=== PATIENT | female | born 1965 ===

== ENCOUNTER 2017-05-24 22:16 | Inpatient (IN) ==
--- NOTE | 2017-05-24 22:39 | Emergency Department Note ---
Arrival - Arrival Chief Complaint: GI Bleed/Rectal Stated Complaint: Rectal bleeding ED Nursing Triage Note: C/C dark bloody stools, nausea. Had similar episode 2 weeks ago and was supposed to f/u with GI. Pt states she went to see [facility] and did not have referral so they would not see her. Pt has another appt in a week. Pt was given Zofran 4mg IV at [facility]. Dialysis M/W/F. Hemocult + Mode of Arrival: Stretcher Limitations: No Limitations Source: Patient Time Seen by Provider: 05/24/17 22:35 - History of Present Illness HPI Narrative: This 52-year-old female [place] presents on referral for problems of persistent lower GI bleed. The patient has had 2 weeks of problems with dark stools that have been Hemoccult. The patient was supposed to see Dr. Mcneal in the office but the office received no referral and they would not see her. She was given another appointment which is yet to come up. Patient is a chronic dialysis patient dialyzing Wednesdays and Fridays. Patient denies any complaints of heartburn, belching, prior peptic ulcer disease, diverticulitis, or inflammatory bowel disease. At no time as she had any chest pain or shortness of breath associated with this. Currently she is stable without any significant complaint having received some antiemetics at [place]. Onset (ago): hour(s) (Patient presents 6 hours after passage of melanotic stool) Allergies/Adverse Reactions: Allergies Allergy/AdvReac Type Severity Reaction Status Date / Time No Known Allergies Allergy Verified 05/24/17 22:30 Home Medications: Home Medications Medication Instructions Recorded Confirmed Type Albuterol Sulfate [Ventolin HFA] 1 puff INH Q4H PRN 06/24/15 04/30/16 History Calcium Acetate [Phoslyra] 1,334 mg PO TID 06/24/15 04/30/16 History Metoprolol Tartrate 100 mg PO DAILY 06/24/15 04/30/16 History HYDROcodone/ACETAMIN 10-325 [[place] 1 tablet PO Q6H PRN #14 tablet 04/30/16 Rx 10-325] Insulin Detemir [Levemir FlexPen] 30 unit SUBCUT BEDTIME 04/30/16 04/30/16 History NIFEdipine [Nifedipine ER] 60 mg PO DAILY 04/30/16 04/30/16 History levoFLOXacin [Levofloxacin Tab] 250 mg PO DAILY 04/30/16 04/30/16 History traMADol TAB [Ultram] 50 mg PO Q8H PRN 04/30/16 04/30/16 History Review of System - Review of System 12 point system: reviewed and no additional remarkable complaints except as stated - Review of System Constitutional: Present: as per HPI Respiratory: Present: as per HPI Cardiovascular: Present: as per HPI Gastrointestinal: Present: as per HPI Medical,Surgical,& Family Hx - Medical History Cardio: History of: CHF, Hypertension Endocrine: History of: Diabetes Mellitus (IDDM) Renal: History of: Dialysis (MWF), Renal Failure Gastrointestinal: History of: Gastrointestinal Bleed Musculoskeletal: History of: Amputation (ALL TOES AMPUTATED OFF LEFT FOOT) - Surgical History Abdominal Surgeries: Surgical HX of: Abdominal Surgery, Appendectomy, Cholecystectomy - Family History Family History: Reports;: Family Diabetes (father, sister) - Social History Smoking Status: Former smoker Frequency of Alcohol Use: None Type of Drug Use: None Exam Physical Examination: GENERAL: Obese [place] female in no acute distress. HEENT: Normocephalic. No trauma. Moist mucous membranes. EOMI. PERRLA. ENT NML NECK: Supple. No adenopathy. CARDIAC: Regular. No murmurs. Heart rate 60 CHEST: Clear to auscultation. No respiratory distress. O2 sat 96% ABDOMEN: Soft. Nontender. Active bowel sounds. EXTREMITIES: No trauma. Normal ROM. No pedal edema. 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 No rash. NEURO: Alert. Neuro intact no focal deficits. Vital Signs: Vital Signs Temperature 97.1 F L 05/24/17 22:18 Pulse Rate 60 05/24/17 22:18 Respiratory Rate 18 05/24/17 22:18 Blood Pressure 191/75 05/24/17 22:18 O2 Sat by Pulse Oximetry 96 05/24/17 22:18 Course - Reevaluation(s) Reevaluation #1: Patient transferred for the purpose of admission and evaluation per GI. - Consultations Consultation #1: Discussed with the hospitalist who will admit for further evaluation treatment. Results - Labs Labs: Results per [place]: Hemoccult positive stool, white blood cell count 3800, hematocrit 30.8, sodium 140, potassium 4.8, BUN 41, creatinine 6.8, glucose 155 , PT 14.6 seconds, INR 1.11 Disposition Clinical Impression: Recurrent GI bleed, Dialysis dependent renal Case discussed with: patient Disposition: Still a Patient Condition: Guarded Time of Disposition: 22:50
[2017-05-24] MEDS ORDERED: METOCLOPRAMIDE 10 MG/2 ML VIAL IV STA (22:40)
[2017-05-24] MEDS ORDERED: PANTOPRAZOLE 40 MG VIAL IV STA (22:40)
[2017-05-24] MEDS ORDERED: PANTOPRAZOLE 40 MG VIAL IV ONE (22:55)
[2017-05-24] MEDS ORDERED: METOCLOPRAMIDE 10 MG/2 ML VIAL ONE (22:56)
[2017-05-24 23:25] LABS: Basophils % 0.5 % (0.0-0.8); Eosinophils # 0.3 10*3/uL (0.0-0.87); Hematocrit 28.2 VOL% (35.7-47.0); Hemoglobin 9.5 GM/DL (12.0-16.0); Immature Granulocytes % 0.3 %; Immature Granulocytes Absolute 0.01 #; Lymphocytes # 1.1 10*3/uL (1.4-4.0); Lymphocytes % 28.1 % (21.3-54.2); Mean Corpuscular HGB Conc 33.7 GM/DL (32-36); Mean Corpuscular Hemoglobin 32 PG (27-34); Mean Corpuscular Volume 94.6 FL (87-102); Mean Platelet Volume 10.6 FL (9.6-12.0); Monocytes # 0.4 10*3/uL (0.11-0.8); Monocytes % 9.6 % (1.7-12.7); Neutrophils # 2.1 10*3/uL (1.4-7.4); Neutrophils % 54.5 % (38.7-73.9); Platelet Count 73 T/CUMM (130-400); Red Blood Count 2.98 MC/CUMM (3.8-5.5); Red Cell Distribution Width 14.6 % (9.3-17.3); White Blood Count 3.9 T/CUMM (4-12)
[2017-05-25 00:44] LABS: Eosinophils 6 % (0-10); Lymphocytes 25 % (20-55); Platelet Estimate Decreased; Segmented Neutrophils 61 % (50-85); Total Cells Counted 100
[2017-05-25] MEDS ORDERED: hydrALAZINE 20 MG/1 ML VIAL ONE (01:44)
[2017-05-25] MEDS ORDERED: hydrALAZINE 20 MG/1 ML VIAL IV ONE (01:44)
[2017-05-25] MEDS ORDERED: traZODone 50 MG TABLET PO PRN (01:55)
[2017-05-25] MEDS ORDERED: ACETAMINOPHEN 325 MG TABLET PO PRN (01:55)
[2017-05-25] MEDS ORDERED: PROMETHAZINE 25 MG/1 ML VIAL IM PRN (01:55)
[2017-05-25] MEDS ORDERED: MORPHINE 2 MG/1 ML SYRINGE IV PRN (01:55)
[2017-05-25] MEDS ORDERED: PROMETHAZINE 25 MG TABLET PO PRN (01:55)
[2017-05-25] MEDS ORDERED: ONDANSETRON 4 MG/2 ML VIAL IV PRN (01:55)
[2017-05-25] MEDS ORDERED: diphenhydrAMINE CAP 25 MG CAPSULE PO PRN (01:55)
[2017-05-25] MEDS ORDERED: hydrALAZINE 20 MG/1 ML VIAL IV PRN (02:04)
[2017-05-25] MEDS ORDERED: DEXTROSE 50% 25 GM/50 ML SYRINGE IV PRN (02:12)
[2017-05-25] MEDS ORDERED: GLUCAGON 1 MG VIAL IM PRN (02:12)
--- NOTE | 2017-05-25 02:15 | Hospitalist History & Physical ---
Assessment and Plan (1) Blood loss anemia Status: Acute Assessment and plan: - due to GI Bleed - serial hemoglobin - will transfuse if needed - will monitor Current Visit: Yes (2) GI bleed Status: Acute Assessment and plan: - Protonix infusion - Carafate - GI Consult - serial CBC; will transfuse if need - will monitor Current Visit: Yes (3) Diabetes mellitus Status: Acute Assessment and plan: - Holding home insulin - SSI and accuchecks - will monitor Current Visit: No (4) End stage renal disease Status: Acute Assessment and plan: ESRD - on Dialysis - Consult nephrology - will monitor Current Visit: No History of Present Illness Chief complaint: Dark stools History of present illness: Ms. Griffin is a 52 year old female with a history of DM, HTN, and ESRD on dialysis (M-W-F) that presented from [facility] for GI bleed. Patient reports having maroon stools that started today. Patient reports that she has had 2 stools. Patient reports chronic nausea and vomiting since starting dialysis. Patient reports weakness and mild right lower quadrant pain. Patient reports that she had dark maroon stools about 1 month ago and was supposed to see a GI doctor but it was never set up. Patient has never had any type of endoscopic evaluation. Patient denies taking any blood thinners or NSAIDs. ER labs reviewed. Patient will be admitted to the hospitalist service for a GI bleed. Home Medications Medication Instructions Recorded Confirmed Type Insulin Detemir [Levemir FlexPen] 30 unit SUBCUT BEDTIME 04/30/16 05/25/17 History NIFEdipine [Nifedipine ER] 90 mg PO DAILY 04/30/16 05/25/17 History Metoprolol Tartrate 50 mg PO DAILY 05/25/17 05/25/17 History Allergies Allergy/AdvReac Type Severity Reaction Status Date / Time No Known Allergies Allergy Verified 05/24/17 22:30 Medical,Surgical,& Family Hx - Medical History Cardio: History of: CHF, Hypertension Endocrine: History of: Diabetes Mellitus (IDDM) Renal: History of: Dialysis (MWF), Renal Failure Gastrointestinal: History of: Gastrointestinal Bleed Musculoskeletal: History of: Amputation (ALL TOES AMPUTATED OFF LEFT FOOT) - Surgical History Abdominal Surgeries: Surgical HX of: Abdominal Surgery, Appendectomy, Cholecystectomy Orthopedic Surgeries: Surgical HX of;: Orthopedic Surgery (transmetatarsal amputation of the left foot) - Family History Family History: Reports;: Family Diabetes (father, sister) - Social History Smoking Status: Former smoker Frequency of Alcohol Use: None Type of Drug Use: None Review of systems: 12 point review of systems is negative unless stated in the HPI Exam - Constitutional Vitals: Period Temp Pulse Resp BP Sys/Coello Pulse Ox Last 24 Hr 97.1 F-97.1 F 60-60 18-18 191-191/75-75 96 General appearance: no acute distress, over weight - Head Head exam: Present: normal inspection - Eye Eye exam: Present: EOMI - Neck Neck exam: Present: normal inspection - Respiratory Respiratory exam: Present: clear to auscultation bilaterally - Cardiovascular Cardiovascular exam: Present: regular rate and rhythm - GI/Abdominal GI/Abdominal exam: Present: normal bowel sounds, tenderness (rightt lower quadrant), soft. Absent: distended, rebound - Extremities Exam Extremities exam: Present: edema, other (peripheral pulses intact). Absent: normal inspection - Neurological Exam Neurological exam: Present: alert, oriented X3 - Psychiatric Psychiatric exam: Present: normal affect, normal mood - Skin Skin exam: Present: normal color, warm, dry Results - Labs CBC & BMP: 05/24/17 23:06 Quality Measures - VTE Contraindication to Pharmacological VTE Prophylaxis: Active Bleeding
[2017-05-25] MEDS ORDERED: PANTOPRAZOLE INJ 200 MG in SODIUM CHLORIDE 0.9% 250 ML IV SCH (03:00)
[2017-05-25 05:57] LABS: Basophils % 0.9 % (0.0-0.8); Eosinophils # 0.3 10*3/uL (0.0-0.87); Eosinophils % 7.9 % (0.00-10.9); Hematocrit 28.3 VOL% (35.7-47.0); Hemoglobin 9.6 GM/DL (12.0-16.0); Immature Granulocytes % 0.3 %; Immature Granulocytes Absolute 0.01 #; Lymphocytes % 30.6 % (21.3-54.2); Mean Corpuscular HGB Conc 33.9 GM/DL (32-36); Mean Corpuscular Hemoglobin 32 PG (27-34); Mean Corpuscular Volume 94.3 FL (87-102); Mean Platelet Volume 11.1 FL (9.6-12.0); Monocytes # 0.3 10*3/uL (0.11-0.8); Monocytes % 8.5 % (1.7-12.7); Neutrophils # 1.8 10*3/uL (1.4-7.4); Neutrophils % 51.8 % (38.7-73.9); Red Cell Distribution Width 14.6 % (9.3-17.3); White Blood Count 3.4 T/CUMM (4-12)
[2017-05-25 06:03] LABS: Platelet Count 73 T/CUMM (130-400)
[2017-05-25 06:30] LABS: Albumin 3.2 G/DL (3.4-5.0); Bilirubin,Total 0.9 MG/DL (0.2-1.0); Calcium 8.6 MG/DL (8.5-10.1); Osmolality,Calculated 290.4 MOS/KG (273-304); Potassium 4.5 MMOL/L (3.5-5.1); Total Protein 7.4 G/DL (6.4-8.3)
[2017-05-25 06:32] LABS: Hypochromasia 1+; Microcytosis Slight; Platelet Estimate Decreased
[2017-05-25] MEDS: METOPROLOL TARTRATE 50 MG TABLET PO SCH (08:09)
[2017-05-25] MEDS: SUCRALFATE 1 GM/10 ML UDCUP PO SCH ×2 (08:09→12:04)
[2017-05-25] MEDS: INSULIN LISPRO 100 UNIT/ML SUBCUT SCH ×4 (08:09→20:39)
[2017-05-25] MEDS ORDERED: PNEUMOCOCCAL VACCINE (13 VALENT) 0.5 ML SYRINGE IM ONE (08:30)
[2017-05-25 10:24] LABS: Basophils % 0.7 % (0.0-0.8); Eosinophils # 0.3 10*3/uL (0.0-0.87); Eosinophils % 7.8 % (0.00-10.9); Hematocrit 28.9 VOL% (35.7-47.0); Hemoglobin 9.9 GM/DL (12.0-16.0); Immature Granulocytes % 0.2 %; Immature Granulocytes Absolute 0.01 #; Lymphocytes # 1.1 10*3/uL (1.4-4.0); Lymphocytes % 25.1 % (21.3-54.2); Mean Corpuscular HGB Conc 34.3 GM/DL (32-36); Mean Corpuscular Hemoglobin 33 PG (27-34); Mean Corpuscular Volume 95.4 FL (87-102); Mean Platelet Volume 10.5 FL (9.6-12.0); Monocytes # 0.4 10*3/uL (0.11-0.8); Monocytes % 8.5 % (1.7-12.7); Neutrophils # 2.4 10*3/uL (1.4-7.4); Neutrophils % 57.7 % (38.7-73.9); Platelet Count 81 T/CUMM (130-400); Red Blood Count 3.03 MC/CUMM (3.8-5.5); Red Cell Distribution Width 14.7 % (9.3-17.3); White Blood Count 4.2 T/CUMM (4-12)
[2017-05-25 10:46] LABS: Hypochromasia 1+
[2017-05-25 10:47] LABS: Microcytosis Slight; Ovalocytes Slight; Platelet Estimate Decreased
--- NOTE | 2017-05-25 12:03 | Dialysis Note ---
Dialysis Note - Dialysis Note Patient seen on hemodialysis, she is tolerating this well will continue his treatment unchanged.
--- NOTE | 2017-05-25 12:11 | Gastrointestinal Consult Note ---
Assessment and Plan (1) Gastrointestinal hemorrhage with melena Status: Acute Assessment and plan: The patient has some mild epigastric pain is thought that she may have peptic ulcer disease as the cause for her symptoms. We also wish to rule out esophagitis gastric cancer erosive gastritis duodenitis and AVMs. She really does not have much in the way of heartburn indigestion. There is no dysphagia. She does have some mild right lower quadrant pain of unclear etiology. This may be an association with adhesions from her previous appendix removal, cholecystectomy. We will plan on performing upper endoscopy tomorrow morning. Risks of the procedure include but are not limited to: Bleeding, infection, perforation, cardiac and pulmonary compromise. Agree with use of Protonix 40 mg twice daily either orally or IV. Current Visit: Yes (2) Blood loss anemia Status: Acute Assessment and plan: Again we will plan on observing patient's hematocrit and hold off on transfusion for the present time unless she drops below 24%. Transfusion parameters will not be written as she will likely need to this given to her on dialysis. Hematocrits twice daily are probably adequate. Further recommendations post upper endoscopy. Current Visit: Yes (3) Obesity Status: Acute Assessment and plan: Mild obesity noted. Current Visit: No Qualifiers: Obesity classification: adult class 2 (BMI 35 ? 39.9) History of Present Illness Chief complaint: Melena, hematocrit dropped from 34-28%, epigastric/RLQ tenderness History of present illness: Ms. Griffin is a 52 year old female who was referred from the [facility] for upper GI bleeding. She had previously been seen by Dr. Viveros back in June 2008, during his office visit he noted that the patient had acute pancreatitis episode suspicious of gallbladder pancreatitis and a HIDA scan with an ejection fraction of only 8%. She was referred to [facility] to undergo cholecystectomy, which she did. The patient had been apparently referred to me approximately a month ago after having an episode of melena. She did make it all the way to the clinic but was turned away because she did not have an appropriate referral. She states that a second episode started yesterday and this resulted in her being admitted to the hospitalist service. The stool was described as dark maroon but it appears that today it is quite black. It is grossly guaiac positive. She been having some nausea and vomiting as well as some mild epigastric pain which is present on physical examination but is improved with Protonix use. She states also that occasionally she will get a sharp pain in her right lower quadrant which is 10 out of 10 but last for only about a minute. She has not had to have any diarrhea or constipation. She does have some mild reflux but does not take any medication for this. She denies taking any NSAIDs. She has been on dialysis for the last 8 years. She has had a total of 3 black stools over the last 12 hours. Her hematocrit has been stable since she has been here at about the level of 28%. The last hematocrit we had seen in the computer prior to this one was on 04/30/16 at which time this was 34.9%. Home Medications Medication Instructions Recorded Confirmed Type Insulin Detemir [Levemir FlexPen] 30 unit SUBCUT BEDTIME 04/30/16 05/25/17 History NIFEdipine [Nifedipine ER] 90 mg PO DAILY 04/30/16 05/25/17 History Metoprolol Tartrate 50 mg PO DAILY 05/25/17 05/25/17 History Ondansetron Tab [Zofran Tab] 4 mg PO Q6HR PRN 05/25/17 05/25/17 History Promethazine Tab [Phenergan Tab] 25 mg PO Q6H PRN 05/25/17 05/25/17 History Sulfacetamide Sodium 10 % BOTH EYES DAILY 05/25/17 05/25/17 History [Sulfacetamide 10% Susp] cephALEXin [Cephalexin] 250 mg PO DAILY 05/25/17 05/25/17 History Allergies Allergy/AdvReac Type Severity Reaction Status Date / Time No Known Allergies Allergy Verified 05/24/17 22:30 Medical,Surgical,& Family Hx - Medical History Cardio: History of: CHF, Hypertension Endocrine: History of: Diabetes Mellitus (IDDM) Renal: History of: Dialysis (MWF), Renal Failure Gastrointestinal: History of: Gastrointestinal Bleed Musculoskeletal: History of: Amputation (ALL TOES AMPUTATED OFF LEFT FOOT) - Surgical History Abdominal Surgeries: Surgical HX of: Abdominal Surgery, Appendectomy, Cholecystectomy Orthopedic Surgeries: Surgical HX of;: Orthopedic Surgery (transmetatarsal amputation of the left foot) - Family History Family History: Reports;: Family Diabetes (father, sister) - Social History Smoking Status: Former smoker Frequency of Alcohol Use: None Type of Drug Use: None Review of systems: Constitutional: Denies fever, chills, nausea, and vomiting Eyes: Denies dry eyes, and scleral icterus HENT: She does take occasional Tylenol for headaches Cardiovascular: Denies acute chest pain and claudication Respiratory: Denies shortness of breath, wheezing, and difficulty breathing, denies cough Gastrointestinal: As noted in the HPI Genitourinary: Denies dysuria and hematuria Neurologic: Denies vision loss, and loss of sensation Musculoskeletal: She is complaining of some joint swelling, joint stiffness, and muscular weakness Psychiatric: Denies depression and ash symptoms Heme-Lymph: Denies easy bruising, lymph node enlargement or tenderness, night sweats, excessive bleeding Allergies-immunologic: Denies pruritus and rhinorrhea Exam - Constitutional Vitals: Period Temp Pulse Resp BP Sys/Coello Pulse Ox Last 24 Hr 97.1 F-97.8 F 54-62 17-18 151-191/66-75 91-98 General appearance: no acute distress, over weight - Head Head exam: Present: normocephalic - Eye Eye exam: Present: EOMI - Respiratory Respiratory exam: Present: clear to auscultation bilaterally. Absent: rhonchi, stridor, wheezes - Cardiovascular Cardiovascular exam: Present: regular rate and rhythm - GI/Abdominal GI/Abdominal exam: Present: normal bowel sounds, distended, tenderness (Mostly in the epigastric but also slightly in the right lower quadrant), soft - Neurological Exam Neurological exam: Present: alert, oriented X3, CN II-XII intact - Psychiatric Psychiatric exam: Present: normal affect, normal mood - Skin Skin exam: Present: warm Results - Labs CBC & BMP: 05/25/17 10:01 05/25/17 04:52 Quality Measures - VTE Contraindication to Pharmacological VTE Prophylaxis: Active Bleeding
[2017-05-25] MEDS ORDERED: PANTOPRAZOLE 40 MG VIAL IV SCH (13:00)
--- NOTE | 2017-05-25 13:02 | EKG Report ---
Stationary ECG Study [facility] Test Date: 05/25/2017 1:02:14 PM Pat Name: MERON PALENCIA Department: Room: 280 Gender: F [employer] Department Manager: : 1965 Requested by: Taco Kaur Order Number: [id number] Reading MD: BRANNON GARCIA Intervals [place] Rate: 65 P: 999 PA: 0 QRS: -27 QRSD: 110 T: 56 QT: 462 QTc: 474 Interpretive Statements SUPRAVENTRICULAR RHYTHM LEFT AXIS DEVIATION MINIMAL ST DEPRESSION PROLONGED QT INTERVAL Electronically Signed On 05-26-17 17:14:00 CDT by BRANNON GARCIA [email or web address]
--- NOTE | 2017-05-25 14:51 | XRay Report ---
Portable chest. Indication: Respiratory preoperative. Comparison: April 30, 2016. The heart is enlarged. The pulmonary vasculature is normal. The lung keys are clear. The osseous structures are unremarkable. Impression: Stable cardiomegaly. PROCEDURE INTERPRETED AT [facility] DEPARTMENT OF RADIOLOGY Final Report Signed by: Dr. Kassi Hussein
--- NOTE | 2017-05-25 15:47 | Nephrology Consult Note ---
History of Present Illness Chief complaint: End-stage renal disease History of present illness: Ms. Griffin is a 52 year old female with a history of end-stage renal disease due to hypertension and diabetes who currently dialyzes at the [place] dialysis unit on a Tuesday schedule. The patient presented with a one-day history of dark stools weakness and abdominal discomfort. She was seen by a local emergency department where she was found to have heme positive stools and transferred to [place] for further evaluation. No history of NSAID medication. No nausea or vomiting. Nephrology is been consulted for renal issues. Home Medications Medication Instructions Recorded Confirmed Type Insulin Detemir [Levemir FlexPen] 30 unit SUBCUT BEDTIME 04/30/16 05/25/17 History NIFEdipine [Nifedipine ER] 90 mg PO DAILY 04/30/16 05/25/17 History Metoprolol Tartrate 50 mg PO DAILY 05/25/17 05/25/17 History Ondansetron Tab [Zofran Tab] 4 mg PO Q6HR PRN 05/25/17 05/25/17 History Promethazine Tab [Phenergan Tab] 25 mg PO Q6H PRN 05/25/17 05/25/17 History Sulfacetamide Sodium 10 % BOTH EYES DAILY 05/25/17 05/25/17 History [Sulfacetamide 10% Susp] cephALEXin [Cephalexin] 250 mg PO DAILY 05/25/17 05/25/17 History Allergies Allergy/AdvReac Type Severity Reaction Status Date / Time No Known Allergies Allergy Verified 05/24/17 22:30 Medical,Surgical,& Family Hx - Medical History Cardio: History of: CHF, Hypertension Endocrine: History of: Diabetes Mellitus (IDDM) Renal: History of: Dialysis (MWF), Renal Failure Gastrointestinal: History of: Gastrointestinal Bleed Musculoskeletal: History of: Amputation (ALL TOES AMPUTATED OFF LEFT FOOT) - Surgical History Abdominal Surgeries: Surgical HX of: Abdominal Surgery, Appendectomy, Cholecystectomy Orthopedic Surgeries: Surgical HX of;: Orthopedic Surgery (transmetatarsal amputation of the left foot) - Family History Family History: Reports;: Family Diabetes (father, sister) - Social History Smoking Status: Former smoker Frequency of Alcohol Use: None Type of Drug Use: None Review of Systems Constitutional: fatigue, no anorexia, no chills Nose, mouth and throat: no dysphagia Cardiovascular: no chest pain at rest Gastrointestinal: abdominal pain, melena Exam - Vital Signs Vital signs: Period Temp Pulse Resp BP Sys/Coello Pulse Ox Last 24 Hr 97.1 F-97.8 F 54-62 17-18 131-191/66-75 91-98 - General Appearance General appearance: well-developed, well-nourished EENT: ATNC Neck: supple Respiratory: clear Cardiology: regular rate, regular rhythm Gastrointestinal: normoactive bowel sounds, no tenderness Neurologic: alert and oriented x3, CN 3-12 intact Musculoskeletal: no clubbing Psychiatric: mood/affect appropriate Results - Labs CBC & BMP: 05/25/17 10:01 05/25/17 04:52 Assessment and Plan (1) End stage renal disease Status: Chronic Assessment and plan: Continue with scheduled hemodialysis for this patient. Current Visit: No (2) Diabetes mellitus Status: Chronic Current Visit: No Qualifiers: Diabetes mellitus type: type 2 Diabetes mellitus complication status: with kidney complications Chronic kidney disease stage: on chronic dialysis (3) Hypertension Status: Chronic Current Visit: No Qualifiers: Hypertension type: essential hypertension Qualified Code(s): I10 - Essential (primary) hypertension (4) Obesity Status: Acute Current Visit: No Qualifiers: Obesity classification: adult class 2 (BMI 35 ? 39.9) (5) Anemia Status: Chronic Current Visit: No (6) GI bleed Status: Acute Assessment and plan: Hemodynamics are stable. Plan for further GI workup. Current Visit: Yes (7) Gastrointestinal hemorrhage with melena Status: Acute Current Visit: Yes
[2017-05-25] MEDS: PANTOPRAZOLE 40 MG VIAL IV SCH (20:39)
[2017-05-25] MEDS ORDERED: INSULIN DETEMIR 30 UNIT SUBCUT SCH (21:00)
--- NOTE | 2017-05-26 09:12 | Operative Note ---
Date of procedure: 05/26/17 Pre-op diagnosis: Melena, drop in hematocrit 28%, previously 34% Post-op diagnosis: other (This patient has mild erosive gastritis and mild erosive duodenitis, biopsies were taken to rule out celiac sprue) Procedure: PROCEDURE: Esophagogastroduodenoscopy (EGD) with cold biopsy for pathology REFERRING PHYSICIAN: Amalia Cole MD INDICATIONS: Drop in hematocrit to 28% stable since admission, she has a baseline of 34%, this is a renal patient on dialysis. The prior H&P was reviewed and interrim changes are as noted: No change from GI consultation yesterday ENDOSCOPIST: Chencho Mcneal MD ENDOSCOPE: Olympus Video 100 System upper endoscope ASA CLASS: 4 EXAM: CV: regular rate and rhythm respiratory: Clear without wheezes abdominal: active bowel sounds MEDICATION: Per nursing anesthesia protocol, see their notes PROCEDURE: After discussion of the potential risks and benefits of upper endoscopy, the informed consent was obtained. The patient was then placed in the left lateral decubitus position where sedation was achieved as noted above. Esophageal intubation was performed without difficulty, and the endoscope was advanced through the esophagus, stomach and duodenum. A slow withdrawal was then performed with retroflexion in the stomach for careful inspection of the incisura angularis, fundus and cardia. The scope was then returned to a neutral position and withdrawn through the esophagus. The patient tolerated the procedure well and without complication. BIOPSIES: Gastric antrum/body, duodenum PHOTOGRAPHS: Obtained FINDINGS: Hypopharynx and Larynx: Normal Esohagoscopy Upper and middle thirds: Normal Lower third normal Esophogastric junctions: No gross evidence of esophagitis, Abdi's, or stricturing Gastroscopy: Cardia/Fundus: Normal-appearing with scant amount of retained fluid Body: Mild linear gastritis, biopsied Antrum and pylorus mild linear gastritis with a few punctate erosions Duodenoscopy: Bulb mild duodenitis, biopsied for sprue Second and third portions: Mild duodenitis with a few erosions, biopsied for sprue IMPRESSION: This patient has mild erosive gastritis and mild erosive duodenitis, biopsies were taken to rule out celiac sprue RECOMMENDATIONS: Follow up for biopsy results in 1-2 weeks by phone [phone] Continue anti-gastroesophageal reflux measures (avoid carbonated and acidic beverages, avoid eating within 2 hours of bedtime, avoid tight fitting clothing , and elevate the front bed posts 6 inches prior to sleeping. Suggest Protonix at least once per day, prescription is written on the front of the chart Recheck hematocrit in 2 months to make sure there is stability. She is likely stable for discharge now Chencho Mcneal MD COPY TO: Amalia Cole MD Anesthesia: MAC Surgeon / Physician: Chencho Mcneal Estimated blood loss: minimal Specimens: other (cecum/ascending/descending/sigmoid) Condition: stable Disposition: post procedure unit ([facility]) Results - Labs CBC & BMP: 05/25/17 10:01 05/25/17 04:52 Discharge Plan - Discharge Medications No Action Insulin Detemir [Levemir FlexPen] 30 unit SUBCUT BEDTIME NIFEdipine [Nifedipine ER] 90 mg PO DAILY Metoprolol Tartrate 50 mg PO DAILY Promethazine Tab [Phenergan Tab] 25 mg PO Q6H PRN PRN Reason: Nausea Ondansetron Tab [Zofran Tab] 4 mg PO Q6HR PRN PRN Reason: Nausea Sulfacetamide Sodium [Sulfacetamide 10% Susp] 10 % BOTH EYES DAILY cephALEXin [Cephalexin] 250 mg PO DAILY - Follow Up or Referral - Forms/Instructions
--- NOTE | 2017-05-26 09:15 | Gastrointestinal Progress Note ---
Assessment and Plan (1) Gastrointestinal hemorrhage with melena Status: Acute Assessment and plan: The patient has some mild epigastric pain is thought that she may have peptic ulcer disease as the cause for her symptoms. We also wish to rule out esophagitis gastric cancer erosive gastritis duodenitis and AVMs. She really does not have much in the way of heartburn indigestion. There is no dysphagia. She does have some mild right lower quadrant pain of unclear etiology. This may be an association with adhesions from her previous appendix removal, cholecystectomy. We will plan on performing upper endoscopy tomorrow morning. Risks of the procedure include but are not limited to: Bleeding, infection, perforation, cardiac and pulmonary compromise. Agree with use of Protonix 40 mg twice daily either orally or IV. 05/26/17--The patient had the following on upper endoscopy: This patient has mild erosive gastritis and mild erosive duodenitis, biopsies were taken to rule out celiac sprue. We will treat her with Protonix 40 mg daily prior to suppertime. Prescription written and clipped to the front of her chart, she can go home from my standpoint as she appears to be stable. She is to schedule outpatient colonoscopy to look at the right lower quadrant pain and for her anemia. Current Visit: Yes (2) Blood loss anemia Status: Acute Assessment and plan: Again we will plan on observing patient's hematocrit and hold off on transfusion for the present time unless she drops below 24%. Transfusion parameters will not be written as she will likely need to this given to her on dialysis. Hematocrits twice daily are probably adequate. Further recommendations post upper endoscopy. 05/26/17--As noted above Current Visit: Yes (3) Obesity Status: Acute Assessment and plan: Mild obesity noted. Current Visit: No Qualifiers: Obesity classification: adult class 2 (BMI 35 ? 39.9) (4) Screening for colorectal cancer Status: Acute Assessment and plan: This should be arranged for as an outpatient. Continue Protonix for now on a daily basis. Current Visit: Yes Gastroenterology - PN: Subj Interval history: No new complaints, patient can resume renal diet. Exam (Progress Note) - Constitutional Vitals: Period Temp Pulse Resp BP Sys/Coello Pulse Ox Last 24 Hr 96.8 F-99 F 53-68 16-24 131-213/54-84 91-97 General appearance: no acute distress - Head Head exam: Present: normocephalic - Eye Eye exam: Present: EOMI - Respiratory Respiratory exam: Present: clear to auscultation bilaterally. Absent: rhonchi, stridor, wheezes - Cardiovascular Cardiovascular exam: Present: regular rate and rhythm - GI/Abdominal GI/Abdominal exam: Present: normal bowel sounds, soft. Absent: distended, tenderness, rebound - Extremities Exam Extremities exam: Present: edema (Trace) - Neurological Exam Neurological exam: Present: alert, oriented X3 - Psychiatric Psychiatric exam: Present: normal mood, flat affect - Skin Skin exam: Present: warm Results - Labs CBC & BMP: 05/25/17 10:01 05/25/17 04:52
--- NOTE | 2017-05-26 09:16 | Anesthesia Post-Op ---
Anesthesia Post OP - Post Ansesthetic Evaluation Patient seen in post op: Yes Resp: within normal limits CV: within normal limits Mental: within normal limits Temp: within normal limits [id number]: within normal limits Nausea and Vomiting: within normal limits Pain: within normal limits
[2017-05-26] MEDS: INSULIN LISPRO 100 UNIT/ML SUBCUT SCH ×4 (09:32→21:35)
--- NOTE | 2017-05-26 10:52 | Discharge Summary ---
Addendum entered and electronically signed by Colleen Hsieh PA 05/27/17 10:55: Patient was discharged was delayed 1 day due to hypertension. This is now back under control. Discussed with Dr. Cole. Original Note: Hospital Course - Hospital Course Hospital Course: 52-year-old female with history of diabetes, hypertension, end- stage renal disease on dialysis admitted by the hospitalist service on 2016 from the [facility] with a GI bleed. Patient was admitted and her hemoglobin and platelets were monitored. She did receive Protonix infusion IV. Dr. Mcneal from gastroenterology was consulted. She was taken for EGD on where he found a mild erosive gastritis and mild erosive duodenitis and biopsies were taken. He will treat her with Protonix daily prior to suppertime and he wrote a prescription for the front of the chart. He wants to schedule an outpatient colonoscopy as well to look at her right lower quadrant and evaluate her anemia. Patient has had some issues with her blood pressure and her medicines have been adjusted. She is feeling better and has had no further bleeding. She will be discharged home with follow-up with Dr. Mcneal. Complete discharge instructions were given. Care coordination, chart review, and completed discharge paperwork took approximately 35 minutes. - Time spent with patient Time with patient DS: Greater than 30 minutes Diagnosis - Discharge Diagnosis (1) Dialysis patient Status: Chronic (2) End stage renal disease Status: Chronic (3) Diabetes mellitus Status: Chronic (4) Hypertension Status: Chronic (5) Obesity Status: Acute (6) Anemia Status: Chronic (7) GI bleed Status: Resolved Specialty Discharge - Follow Up or Referrals Follow up with: Chencho Mcneal MD [Physician] - 06/27/17 6:00 am (colonoscopy screening) Discharge Plan - Discharge Data Disposition: Disch To Home/Self Care Condition at Discharge: Stable Discharge Diet: diabetic diet Activity: resume usual activities as tolerated Driving: no restrictions Contact your physician if you experience:: Nausea/Vomiting, Bleeding - Discharge Medications No Action Insulin Detemir [Levemir FlexPen] 30 unit SUBCUT BEDTIME NIFEdipine [Nifedipine ER] 90 mg PO DAILY Metoprolol Tartrate 50 mg PO DAILY Promethazine Tab [Phenergan Tab] 25 mg PO Q6H PRN PRN Reason: Nausea Ondansetron Tab [Zofran Tab] 4 mg PO Q6HR PRN PRN Reason: Nausea Sulfacetamide Sodium [Sulfacetamide 10% Susp] 10 % BOTH EYES DAILY cephALEXin [Cephalexin] 250 mg PO DAILY - Follow Up or Referral Follow Up: Chencho Mcneal MD [Physician] - 06/27/17 6:00 am (colonoscopy screening) - Forms/Instructions Exam - Constitutional Vitals: Period Temp Pulse Resp BP Sys/Coello Pulse Ox Last 24 Hr 96.7 F-99 F 53-69 16-24 131-213/54-84 91-100 Exam: 52-year-old female, no acute distress, alert and oriented Chest clear CV regular rate and rhythm Abdomen obese, nontender Extremities mild pedal edema Discharge Results Procedures and tests throughout hospitalization: Pending Orders 05/25/17 09:40 Occult Blood, Stool Routine Labs on day of discharge: Labs from last 24 hours 05/26/17 05/26/17 05/25/17 11:39 07:18 19:03 POC Glucose 195 H 99 146 H 05/25/17 15:25 POC Glucose 179 H DS: Provider Date of admission: 05/24/17 23:42 Primary care physician: Ebony Trammell MD Attending physician on admission: Du Loredo MD Consults: 05/25/17 01:55 Consult to Physician [CONS] Routine Comment: ESRD Consulting Provider: Mayur Campbell Person Notified: Carmen Date Notified: 05/25/17 Time Notified: 09:20 Consult to Physician [CONS] Routine Comment: GI Bleed, referred to you in clinic Consulting Provider: Chencho Mcneal Person Notified: Lary Date Notified: 05/25/17 Time Notified: 10:00 05/25/17 08:35 Consult to Pastoral Services [CONS] Routine Comment: Pastoral Screen: Request Bioinformatician Visit 05/25/17 12:19 Consult to Anesthesiology [CONS] Routine Consulting Provider: Reason for Anesthesiology: Pre-op Clearance Discharging clinician: SHAHEEN Beck Expected date of discharge: 05/26/17
[2017-05-26] MEDS: METOPROLOL TARTRATE 25 MG TABLET PO SCH (11:28)
[2017-05-26] MEDS: PANTOPRAZOLE 40 MG VIAL IV SCH ×2 (11:29→21:34)
[2017-05-26] MEDS: METOPROLOL TARTRATE 50 MG TABLET PO SCH (11:31)
[2017-05-26] MEDS: ISOSORBIDE MONONITRATE 30 MG TABLET PO SCH (16:59)
--- NOTE | 2017-05-26 19:49 | Nephrology Progress Note ---
Nephrology - PN: Subj Interval history: Patient is resting comfortably no acute changes. Hemodynamics are stable. Exam (PN)-Nephrology - Vital Signs Vital signs: Period Temp Pulse Resp BP Sys/Coello Pulse Ox Last 24 Hr 96.7 F-99 F 53-69 16-24 137-213/54-84 91-100 - General Appearance General appearance: well-developed, well-nourished EENT: ATNC Neck: supple Respiratory: clear Cardiology: no edema, regular rate, regular rhythm Gastrointestinal: normoactive bowel sounds, no tenderness Neurologic: alert and oriented x3, CN 3-12 intact Musculoskeletal: no clubbing Psychiatric: mood/affect appropriate, cooperative - Lab 05/25/17 10:01 05/25/17 04:52 Most recent lab results Calcium 8.6 MG/DL (8.5-10.1) 05/25/17 04:52 Assessment and Plan (1) End stage renal disease Status: Chronic Assessment and plan: Continue with scheduled hemodialysis for this patient. Current Visit: No (2) Diabetes mellitus Status: Chronic Current Visit: No Qualifiers: Diabetes mellitus type: type 2 Diabetes mellitus complication status: with kidney complications Chronic kidney disease stage: on chronic dialysis (3) Hypertension Status: Chronic Current Visit: No Qualifiers: Hypertension type: essential hypertension Qualified Code(s): I10 - Essential (primary) hypertension (4) Obesity Status: Acute Current Visit: No Qualifiers: Obesity classification: adult class 2 (BMI 35 ? 39.9) (5) Anemia Status: Chronic Current Visit: No (6) GI bleed Status: Resolved Assessment and plan: Hemodynamics are stable. Current Visit: Yes (7) Gastrointestinal hemorrhage with melena Status: Acute Current Visit: Yes Specialty Discharge - Follow Up or Referrals Follow up with: Chencho Mcneal MD [Physician] - 06/27/17 6:00 am (colonoscopy screening)
--- NOTE | 2017-05-27 12:10 | Dialysis Note ---
Dialysis Note - Dialysis Note Patient seen on hemodialysis, she is tolerating this well will continue her treatment unchanged.
[2017-05-27 15:10] VITALS: BP 176/84
[2017-05-27] MEDS: METOPROLOL TARTRATE 25 MG TABLET PO SCH (15:32)
[2017-05-27] MEDS: ISOSORBIDE MONONITRATE 30 MG TABLET PO SCH (15:33)
[2017-05-27] MEDS: INSULIN LISPRO 100 UNIT/ML SUBCUT SCH ×2 (15:34→15:35)
[2017-05-27] MEDS: PANTOPRAZOLE 40 MG VIAL IV SCH (15:36)
--- NOTE | 2017-05-27 18:29 | Pathology Report from [facility] ---
[facility] ACCESSION # : [id number] PATIENT NAME : Karma Palencia ORDERING DR : Chencho Mcneal MD CLINICAL HX: GI Bleed POST-OP DX: #1 Sprue #2 PACHECO SPECIMEN INFO: #1 Small bowel biopsy #2 PACHECO GROSS DESCRIPTION: #1 Received in formalin labeled with the patients name KARMA PALENCIA and #1 consists of a 0.6 x 0.3 cm aggregate of [place] tissue. Submitted in cassette #1.#2 Received in formalin labeled with the patients name KAMRA PALENCIA and #2 consists of a 1.2 x 0.3 cm aggregate of ast[place]a tissue. Submitted in cassette #2. DIAGNOSIS FOR KARMA PALENCIA: #1 SMALL BOWEL BIOPSY: Benign small bowel mucosa with normal villous architecture and moderate chronic inflammation. No evidence of Sprue.#2 GASTRIC ANTRAL BIOPSY: Chronic superficial gastritis. No evidence of malignancy. Special stain for H. pylori-like organisms NOT seen on H &E nor special stain with appropriate control. COLLECTED DATE: 05/26/2017 [facility] REPORT DATE: 05/27/2017 ELECTRONICALLY SIGNED BY: Nancy Lazar III, M.D. 05/27/2017 - 11:16:49 [facility]
== END 2017-05-27 15:58 | disposition home or self-care (01) | DRG 377 ==
LOC: EDBD → EDUNIT# → N.ED 22:16 → SUATTDRO 05-25 01:12 → N.EDINP 05-25 01:12 → N.TELEN 05-25 01:26
PROVIDERS: ADMIT Family Medicine; ATTEND Internal Medicine

== ENCOUNTER 2017-11-07 19:53 | Inpatient (IN) ==
[2017-11-07] MEDS ORDERED: VANCOMYCIN INJ 1,000 MG in SODIUM CHLORIDE 0.9% 250 ML IV STA (22:24)
[2017-11-07] MEDS ORDERED: VANCOMYCIN 1,000 MG VIAL ONE (22:38)
[2017-11-07] MEDS ORDERED: hydrALAZINE 20 MG/1 ML VIAL ONE (23:38)
[2017-11-07] MEDS ORDERED: hydrALAZINE 20 MG/1 ML VIAL IV ONE (23:42)
[2017-11-08] MEDS ORDERED: ONDANSETRON 4 MG/2 ML VIAL IV PRN ×2 (02:07→15:13)
[2017-11-08] MEDS ORDERED: DEXTROSE 50% 25 GM/50 ML VIAL IV PRN (02:07)
[2017-11-08] MEDS ORDERED: GLUCAGON 1 MG VIAL IM PRN (02:07)
[2017-11-08] MEDS ORDERED: MORPHINE 2 MG/1 ML SYRINGE IV PRN (02:07)
[2017-11-08] MEDS ORDERED: ACETAMINOPHEN 325 MG TABLET PO PRN (02:07)
[2017-11-08 06:18] LABS: Basophils % 0.9 % (0.0-0.8); Eosinophils # 0.2 10*3/uL (0.0-0.87); Eosinophils % 6.6 % (0.00-10.9); Hematocrit 29.5 VOL% (35.7-47.0); Immature Granulocytes % 0.3 %; Immature Granulocytes Absolute 0.01 #; Lymphocytes % 31.1 % (21.3-54.2); Mean Corpuscular HGB Conc 33.9 GM/DL (32-36); Mean Corpuscular Hemoglobin 32 PG (27-34); Mean Corpuscular Volume 94.6 FL (87-102); Mean Platelet Volume 10.6 FL (9.6-12.0); Monocytes # 0.3 10*3/uL (0.11-0.8); Monocytes % 8.8 % (1.7-12.7); Neutrophils # 1.7 10*3/uL (1.4-7.4); Neutrophils % 52.3 % (38.7-73.9); Platelet Count 134 T/CUMM (130-400); Red Blood Count 3.12 MC/CUMM (3.8-5.5); Red Cell Distribution Width 16.5 % (9.3-17.3); White Blood Count 3.3 T/CUMM (4-12)
[2017-11-08 06:58] LABS: Albumin 3.1 G/DL (3.4-5.0); Bilirubin,Total 0.6 MG/DL (0.2-1.0); Calcium 8.7 MG/DL (8.5-10.1); Magnesium 2.1 MG/DL (1.8-2.4); Osmolality,Calculated 295.4 MOS/KG (273-304); Potassium 3.8 MMOL/L (3.5-5.1); Total Protein 7.3 G/DL (6.4-8.3)
[2017-11-08] MEDS ORDERED: ceFAZolin 2,000 MG in PREMIX 1 EACH IV ONE (07:30)
[2017-11-08] MEDS: CALCIUM ACETATE 667 MG CAPSULE PO SCH ×3 (08:59→17:15)
[2017-11-08] MEDS: DOCUSATE SODIUM 100 MG CAPSULE PO SCH ×2 (08:59→21:43)
[2017-11-08] MEDS: IRBESARTAN 150 MG TABLET PO SCH (08:59)
[2017-11-08] MEDS: METOPROLOL SUCCINATE XL 25 MG TABLET PO SCH (09:14)
[2017-11-08] MEDS: amLODIPine 10 MG TABLET PO SCH (09:14)
[2017-11-08] MEDS: PANTOPRAZOLE 40 MG TABLET PO SCH (09:14)
[2017-11-08] MEDS ORDERED: LIDOCAINE 2%/EPI 20 ML VIAL ONE (14:25)
[2017-11-08] MEDS ORDERED: BUPIVACAINE 0.25% 50 ML VIAL ONE (14:25)
[2017-11-08] MEDS ORDERED: CHLORHEXIDINE 4% SOLN 118 ML BOTTLE TOP ONE (15:09)
[2017-11-08] MEDS ORDERED: HYDROmorphone 2 MG/1 ML VIAL IV PRN (15:13)
[2017-11-08] MEDS ORDERED: PROPOFOL 200 MG/20 ML VIAL IV ONE (15:14)
[2017-11-08] MEDS ORDERED: fentaNYL 100 MCG/2 ML VIAL ONE (15:15)
[2017-11-08] MEDS ORDERED: KETAMINE 500 MG/10 ML VIAL ONE (15:15)
[2017-11-08] MEDS ORDERED: MIDAZOLAM 2 MG/2 ML VIAL ONE (15:15)
[2017-11-08] MEDS ORDERED: EPOETIN ALFA 2,000 UNIT/1 ML VIAL IV PRN (16:19)
[2017-11-08] MEDS: INSULIN REGULAR 100 UNIT/ML SUBCUT SCH ×2 (17:10→21:40)
[2017-11-08] MEDS: AMPICILLIN/SULBACTAM 3,000 MG in SODIUM CHLORIDE 0.9% 100 ML IV SCH (17:16)
[2017-11-08] MEDS: SODIUM CHLORIDE 0.9% 1,000 ML IV SCH (20:00)
[2017-11-08] MEDS: INSULIN GLARGINE 100 UNIT/ML SUBCUT SCH (21:42)
[2017-11-08] MEDS: ceFAZolin 2,000 MG in PREMIX 1 EACH IV SCH (21:44)
[2017-11-09] MEDS: ceFAZolin 2,000 MG in PREMIX 1 EACH IV SCH (06:07)
[2017-11-09 06:16] LABS: Eosinophils # 0.3 10*3/uL (0.0-0.87); Eosinophils % 8.6 % (0.00-10.9); Hematocrit 30.2 VOL% (35.7-47.0); Hemoglobin 10.4 GM/DL (12.0-16.0); Immature Granulocytes % 0.3 %; Immature Granulocytes Absolute 0.01 #; Lymphocytes # 0.7 10*3/uL (1.4-4.0); Lymphocytes % 21.4 % (21.3-54.2); Mean Corpuscular HGB Conc 34.4 GM/DL (32-36); Mean Corpuscular Hemoglobin 33 PG (27-34); Mean Corpuscular Volume 95.6 FL (87-102); Mean Platelet Volume 10.5 FL (9.6-12.0); Monocytes # 0.3 10*3/uL (0.11-0.8); Monocytes % 9.3 % (1.7-12.7); Neutrophils # 1.9 10*3/uL (1.4-7.4); Neutrophils % 59.4 % (38.7-73.9); Platelet Count 132 T/CUMM (130-400); Red Blood Count 3.16 MC/CUMM (3.8-5.5); Red Cell Distribution Width 17.2 % (9.3-17.3); White Blood Count 3.1 T/CUMM (4-12)
[2017-11-09 06:53] LABS: Calcium 8.4 MG/DL (8.5-10.1); Osmolality,Calculated 296.5 MOS/KG (273-304); Potassium 4.3 MMOL/L (3.5-5.1)
[2017-11-09] MEDS: INSULIN REGULAR 100 UNIT/ML SUBCUT SCH ×4 (08:20→21:19)
[2017-11-09] MEDS: CALCIUM ACETATE 667 MG CAPSULE PO SCH ×3 (09:36→17:15)
[2017-11-09] MEDS: DOCUSATE SODIUM 100 MG CAPSULE PO SCH ×2 (09:36→21:19)
[2017-11-09] MEDS: PANTOPRAZOLE 40 MG TABLET PO SCH (13:33)
[2017-11-09] MEDS: METOPROLOL SUCCINATE XL 25 MG TABLET PO SCH (13:36)
[2017-11-09] MEDS: SODIUM HYPOCHLORITE 0.25% IRRIG 473 ML BOTTLE TOP SCH (13:36)
[2017-11-09] MEDS: IRBESARTAN 150 MG TABLET PO SCH (13:36)
[2017-11-09] MEDS: amLODIPine 10 MG TABLET PO SCH (13:36)
[2017-11-09] MEDS: SODIUM CHLORIDE 0.9% 1,000 ML IV SCH (18:07)
[2017-11-09] MEDS: AMPICILLIN/SULBACTAM 3,000 MG in SODIUM CHLORIDE 0.9% 100 ML IV SCH (18:07)
[2017-11-09] MEDS: INSULIN GLARGINE 100 UNIT/ML SUBCUT SCH (21:19)
[2017-11-10] MEDS: INSULIN REGULAR 100 UNIT/ML SUBCUT SCH ×2 (08:13→12:41)
[2017-11-10] MEDS: CALCIUM ACETATE 667 MG CAPSULE PO SCH ×2 (10:37→12:41)
[2017-11-10] MEDS: PANTOPRAZOLE 40 MG TABLET PO SCH (10:37)
[2017-11-10] MEDS: amLODIPine 10 MG TABLET PO SCH (10:37)
[2017-11-10] MEDS: DOCUSATE SODIUM 100 MG CAPSULE PO SCH (10:37)
[2017-11-10] MEDS: SODIUM HYPOCHLORITE 0.25% IRRIG 473 ML BOTTLE TOP SCH (10:37)
[2017-11-10] MEDS: IRBESARTAN 150 MG TABLET PO SCH (10:37)
[2017-11-10] MEDS: METOPROLOL SUCCINATE XL 25 MG TABLET PO SCH (10:38)
[2017-11-10 11:36] VITALS: BP 136/58
== END 2017-11-10 12:53 | disposition home or self-care (01) | DRG 570 ==
LOC: N.ED 19:53 → N.EDINP 22:27 → N.3E 22:59
PROVIDERS: ADMIT Specialist; ATTEND Specialist

== ENCOUNTER 2018-01-12 13:33 | Inpatient (IN) ==
[2018-01-12] MEDS ORDERED: SODIUM CHLORIDE 0.9% 1,000 ML IV PRN (16:16)
[2018-01-12] MEDS ORDERED: DEXTROSE 50% 25 GM/50 ML VIAL IV PRN (16:19)
[2018-01-12] MEDS ORDERED: GLUCAGON 1 MG VIAL IM PRN (16:19)
[2018-01-12] MEDS ORDERED: amLODIPine 10 MG TABLET PO SCH (16:30)
[2018-01-12 17:04] LABS: Basophils % 0.7 % (0.0-0.8); Eosinophils # 0.2 10*3/uL (0.0-0.87); Eosinophils % 6.1 % (0.00-10.9); Hematocrit 23.3 VOL% (35.7-47.0); Immature Granulocytes % 0.3 %; Immature Granulocytes Absolute 0.01 #; Lymphocytes # 0.9 10*3/uL (1.4-4.0); Lymphocytes % 31.9 % (21.3-54.2); Mean Corpuscular HGB Conc 34.3 GM/DL (32-36); Mean Corpuscular Hemoglobin 34 PG (27-34); Mean Corpuscular Volume 98.3 FL (87-102); Monocytes # 0.2 10*3/uL (0.11-0.8); Monocytes % 7.5 % (1.7-12.7); Neutrophils # 1.6 10*3/uL (1.4-7.4); Neutrophils % 53.5 % (38.7-73.9); Platelet Count 114 T/CUMM (130-400); Red Blood Count 2.37 MC/CUMM (3.8-5.5); Red Cell Distribution Width 14.6 % (9.3-17.3)
[2018-01-12] MEDS: IRBESARTAN 150 MG TABLET PO SCH (17:25)
[2018-01-12] MEDS: INSULIN LISPRO 100 UNIT/ML SUBCUT SCH ×2 (17:25→21:06)
[2018-01-12] MEDS: METOPROLOL SUCCINATE XL 25 MG TABLET PO SCH (17:25)
[2018-01-12 17:34] LABS: Albumin 2.9 G/DL (3.4-5.0); Bilirubin,Total 1.2 MG/DL (0.2-1.0); Osmolality,Calculated 295.5 MOS/KG (273-304); Potassium 4.6 MMOL/L (3.5-5.1); Total Protein 6.6 G/DL (6.4-8.3)
[2018-01-12 17:37] LABS: % Iron Saturation 67.4 % (18-50); Ferritin 532.7 ng/ml (8-252)
[2018-01-12] MEDS: INSULIN GLARGINE 100 UNIT/ML SUBCUT SCH (21:07)
[2018-01-13 02:42] LABS: Basophils % 0.3 % (0.0-0.8); Eosinophils # 0.2 10*3/uL (0.0-0.87); Eosinophils % 6.6 % (0.00-10.9); Hematocrit 27.8 VOL% (35.7-47.0); Hemoglobin 9.7 GM/DL (12.0-16.0); Immature Granulocytes % 0.3 %; Immature Granulocytes Absolute 0.01 #; Lymphocytes # 1.3 10*3/uL (1.4-4.0); Lymphocytes % 37.9 % (21.3-54.2); Mean Corpuscular HGB Conc 34.9 GM/DL (32-36); Mean Corpuscular Hemoglobin 32 PG (27-34); Mean Corpuscular Volume 91.4 FL (87-102); Mean Platelet Volume 9.8 FL (9.6-12.0); Monocytes # 0.3 10*3/uL (0.11-0.8); Monocytes % 8.4 % (1.7-12.7); Neutrophils # 1.6 10*3/uL (1.4-7.4); Neutrophils % 46.5 % (38.7-73.9); Platelet Count 104 T/CUMM (130-400); Red Blood Count 3.04 MC/CUMM (3.8-5.5); Red Cell Distribution Width 15.2 % (9.3-17.3); White Blood Count 3.4 T/CUMM (4-12)
[2018-01-13 02:43] LABS: Hematocrit 28.8 VOL% (35.7-47.0); Hemoglobin 9.5 GM/DL (12.0-16.0)
[2018-01-13 03:24] LABS: Calcium 7.9 MG/DL (8.5-10.1); Osmolality,Calculated 291.7 MOS/KG (273-304); Potassium 4.7 MMOL/L (3.5-5.1)
[2018-01-13] MEDS ORDERED: LIDOCAINE 100 MG/5 ML SYRINGE ONE (08:51)
[2018-01-13] MEDS ORDERED: PROPOFOL 200 MG/20 ML VIAL IV ONE (08:51)
[2018-01-13] MEDS ORDERED: PANTOPRAZOLE 40 MG VIAL IV SCH (09:00)
[2018-01-13] MEDS ORDERED: PANTOPRAZOLE 40 MG TABLET PO SCH (09:00)
[2018-01-13] MEDS: INSULIN LISPRO 100 UNIT/ML SUBCUT SCH ×4 (10:15→20:59)
[2018-01-13] MEDS: IRBESARTAN 150 MG TABLET PO SCH (10:16)
[2018-01-13] MEDS: METOPROLOL SUCCINATE XL 25 MG TABLET PO SCH (10:16)
[2018-01-13] MEDS ORDERED: diphenhydrAMINE 50 MG/1 ML VIAL IV PRN (13:09)
[2018-01-13] MEDS ORDERED: INSULIN GLARGINE 100 UNIT/ML SUBCUT SCH (13:22)
[2018-01-13] MEDS: ACETAMINOPHEN 325 MG TABLET PO PRN (20:55)
[2018-01-13] MEDS: INSULIN GLARGINE 100 UNIT/ML SUBCUT SCH (21:00)
[2018-01-14 04:51] LABS: Basophils % 0.6 % (0.0-0.8); Eosinophils # 0.2 10*3/uL (0.0-0.87); Eosinophils % 6.5 % (0.00-10.9); Hematocrit 26.3 VOL% (35.7-47.0); Hemoglobin 9.1 GM/DL (12.0-16.0); Immature Granulocytes % 0.6 %; Immature Granulocytes Absolute 0.02 #; Lymphocytes # 0.9 10*3/uL (1.4-4.0); Lymphocytes % 28.3 % (21.3-54.2); Mean Corpuscular HGB Conc 34.6 GM/DL (32-36); Mean Corpuscular Hemoglobin 31 PG (27-34); Mean Corpuscular Volume 90.7 FL (87-102); Mean Platelet Volume 10.3 FL (9.6-12.0); Monocytes # 0.2 10*3/uL (0.11-0.8); Monocytes % 7.5 % (1.7-12.7); Neutrophils # 1.8 10*3/uL (1.4-7.4); Neutrophils % 56.5 % (38.7-73.9); Platelet Count 107 T/CUMM (130-400); White Blood Count 3.2 T/CUMM (4-12)
[2018-01-14] MEDS: INSULIN LISPRO 100 UNIT/ML SUBCUT SCH ×4 (07:44→21:31)
[2018-01-14] MEDS: IRBESARTAN 150 MG TABLET PO SCH ×2 (07:45→10:15)
[2018-01-14] MEDS: ACETAMINOPHEN 325 MG TABLET PO PRN ×2 (07:45→21:34)
[2018-01-14] MEDS: METOPROLOL SUCCINATE XL 25 MG TABLET PO SCH ×2 (07:45→10:15)
[2018-01-14] MEDS: hydrALAZINE 20 MG/1 ML VIAL IV PRN (16:15)
[2018-01-14] MEDS: PANTOPRAZOLE 40 MG TABLET PO SCH (16:48)
[2018-01-14] MEDS: INSULIN GLARGINE 100 UNIT/ML SUBCUT SCH (21:30)
[2018-01-15 03:37] LABS: Basophils % 0.7 % (0.0-0.8); Eosinophils # 0.3 10*3/uL (0.0-0.87); Eosinophils % 6.3 % (0.00-10.9); Hematocrit 22.7 VOL% (35.7-47.0); Hemoglobin 8.1 GM/DL (12.0-16.0); Immature Granulocytes % 0.2 %; Immature Granulocytes Absolute 0.01 #; Lymphocytes % 23.2 % (21.3-54.2); Mean Corpuscular HGB Conc 35.7 GM/DL (32-36); Mean Corpuscular Hemoglobin 32 PG (27-34); Mean Corpuscular Volume 90.8 FL (87-102); Mean Platelet Volume 10.4 FL (9.6-12.0); Monocytes # 0.3 10*3/uL (0.11-0.8); Monocytes % 7.4 % (1.7-12.7); Neutrophils # 2.8 10*3/uL (1.4-7.4); Neutrophils % 62.2 % (38.7-73.9); Platelet Count 110 T/CUMM (130-400); Red Cell Distribution Width 14.9 % (9.3-17.3); White Blood Count 4.4 T/CUMM (4-12)
[2018-01-15] MEDS: INSULIN LISPRO 100 UNIT/ML SUBCUT SCH ×4 (08:15→20:48)
[2018-01-15] MEDS: hydrALAZINE 20 MG/1 ML VIAL IV PRN ×2 (08:16→20:08)
[2018-01-15] MEDS: ONDANSETRON 4 MG/2 ML VIAL IV PRN ×2 (08:17→20:05)
[2018-01-15] MEDS: ACETAMINOPHEN 325 MG TABLET PO PRN (08:17)
[2018-01-15] MEDS: IRBESARTAN 150 MG TABLET PO SCH (08:18)
[2018-01-15] MEDS: METOPROLOL SUCCINATE XL 25 MG TABLET PO SCH (08:18)
[2018-01-15] MEDS ORDERED: SODIUM CHLORIDE 0.9% 1,000 ML IV PRN ×2 (08:25→08:27)
[2018-01-15] MEDS: amLODIPine 10 MG TABLET PO SCH (11:31)
[2018-01-15] MEDS: BISACODYL 5 MG TABLET PO SCH ×2 (11:31→17:34)
[2018-01-15] MEDS: PANTOPRAZOLE 40 MG TABLET PO SCH (16:49)
[2018-01-15] MEDS ORDERED: POLYETHYLENE GLYCOL 3350/ELECTROLYTES 4,000 ML BOTTLE PO ONE (18:00)
[2018-01-15 19:23] LABS: Hematocrit 29.2 VOL% (35.7-47.0); Hemoglobin 9.6 GM/DL (12.0-16.0)
[2018-01-15] MEDS: INSULIN GLARGINE 100 UNIT/ML SUBCUT SCH (20:49)
[2018-01-15] MEDS ORDERED: MAGNESIUM CITRATE 300 ML BOTTLE PO ONE (21:00)
[2018-01-16] MEDS: BISACODYL 5 MG TABLET PO SCH (05:51)
[2018-01-16] MEDS ORDERED: BISACODYL 5 MG TABLET PO SCH (06:00)
[2018-01-16 06:10] LABS: Basophils % 0.6 % (0.0-0.8); Eosinophils # 0.2 10*3/uL (0.0-0.87); Eosinophils % 3.8 % (0.00-10.9); Hematocrit 27.7 VOL% (35.7-47.0); Hemoglobin 9.3 GM/DL (12.0-16.0); Immature Granulocytes % 0.2 %; Immature Granulocytes Absolute 0.01 #; Lymphocytes % 18.7 % (21.3-54.2); Mean Corpuscular HGB Conc 33.6 GM/DL (32-36); Mean Corpuscular Hemoglobin 29 PG (27-34); Mean Corpuscular Volume 87.4 FL (87-102); Monocytes # 0.4 10*3/uL (0.11-0.8); Monocytes % 7.1 % (1.7-12.7); Neutrophils # 3.6 10*3/uL (1.4-7.4); Neutrophils % 69.6 % (38.7-73.9); Platelet Count 127 T/CUMM (130-400); Red Blood Count 3.17 MC/CUMM (3.8-5.5); White Blood Count 5.2 T/CUMM (4-12)
[2018-01-16] MEDS: ONDANSETRON 4 MG/2 ML VIAL IV PRN (07:11)
[2018-01-16 08:24] LABS: Albumin 3.3 G/DL (3.4-5.0); Bilirubin,Total 0.6 MG/DL (0.2-1.0); Calcium 8.7 MG/DL (8.5-10.1); Osmolality,Calculated 291.2 MOS/KG (273-304); Potassium 5.9 MMOL/L (3.5-5.1); Total Protein 7.2 G/DL (6.4-8.3)
[2018-01-16] MEDS: INSULIN LISPRO 100 UNIT/ML SUBCUT SCH ×4 (08:46→21:29)
[2018-01-16] MEDS: METOPROLOL SUCCINATE XL 25 MG TABLET PO SCH (15:52)
[2018-01-16] MEDS: amLODIPine 10 MG TABLET PO SCH (15:52)
[2018-01-16] MEDS: IRBESARTAN 150 MG TABLET PO SCH (15:52)
[2018-01-16] MEDS: ACETAMINOPHEN 325 MG TABLET PO PRN (15:58)
[2018-01-16] MEDS: PANTOPRAZOLE 40 MG TABLET PO SCH (16:01)
[2018-01-16] MEDS: INSULIN GLARGINE 100 UNIT/ML SUBCUT SCH (21:29)
[2018-01-17] MEDS: ACETAMINOPHEN 325 MG TABLET PO PRN (05:04)
[2018-01-17] MEDS: INSULIN LISPRO 100 UNIT/ML SUBCUT SCH (07:33)
[2018-01-17 07:39] VITALS: BP 156/64
[2018-01-17] MEDS: IRBESARTAN 150 MG TABLET PO SCH (08:57)
[2018-01-17] MEDS: amLODIPine 10 MG TABLET PO SCH (08:57)
[2018-01-17] MEDS: METOPROLOL SUCCINATE XL 25 MG TABLET PO SCH (08:57)
[2018-01-17] MEDS ORDERED: PROPOFOL 200 MG/20 ML VIAL IV ONE (10:00)
[2018-01-17] MEDS ORDERED: ETOMIDATE 20 MG/10 ML VIAL IV ONE (10:00)
[2018-01-17] MEDS ORDERED: LIDOCAINE 100 MG/5 ML SYRINGE ONE (10:00)
== END 2018-01-17 10:27 | disposition home or self-care (01) | DRG 393 ==
LOC: N.2E 15:06 → SUATTDRO 15:06
PROVIDERS: ADMIT Internal Medicine

== ENCOUNTER 2018-04-10 07:20 | Inpatient (IN) ==
[2018-04-13 11:35] VITALS: BP 155/58
== END 2018-04-13 12:56 | disposition home or self-care (01) | DRG 393 ==
LOC: N.2E 08:36 → SUATTDRO 08:36
PROVIDERS: ADMIT Internal Medicine; ATTEND Internal Medicine

== ENCOUNTER 2018-07-22 18:40 | Inpatient (IN) ==
[2018-07-22] MEDS ORDERED: MORPHINE 4 MG/1 ML VIAL IV PRN (21:30)
[2018-07-22 22:09] LABS: Basophils % 0.7 % (0.0-0.8); Eosinophils # 0.2 10*3/uL (0.0-0.87); Eosinophils % 5.8 % (0.00-10.9); Hematocrit 25.2 VOL% (35.7-47.0); Hemoglobin 8.2 GM/DL (12.0-16.0); Lymphocytes # 0.9 10*3/uL (1.4-4.0); Mean Corpuscular HGB Conc 32.5 GM/DL (32-36); Mean Corpuscular Hemoglobin 31 PG (27-34); Mean Corpuscular Volume 96.6 FL (87-102); Mean Platelet Volume 10.2 FL (9.6-12.0); Monocytes # 0.2 10*3/uL (0.11-0.8); Monocytes % 6.5 % (1.7-12.7); Neutrophils # 1.5 10*3/uL (1.4-7.4); Platelet Count 103 T/CUMM (130-400); Red Blood Count 2.61 MC/CUMM (3.8-5.5); Red Cell Distribution Width 14.8 % (9.3-17.3); White Blood Count 2.8 T/CUMM (4-12)
[2018-07-22 22:25] LABS: Bilirubin,Total 0.4 MG/DL (0.2-1.0); Calcium 8.3 MG/DL (8.5-10.1); Osmolality,Calculated 283.8 MOS/KG (273-304); Potassium 4.3 MMOL/L (3.5-5.1); Total Protein 7.1 G/DL (6.4-8.3)
[2018-07-23 07:03] LABS: Basophils % 1.2 % (0.0-0.8); Eosinophils # 0.2 10*3/uL (0.0-0.87); Hematocrit 24.8 VOL% (35.7-47.0); Lymphocytes # 0.9 10*3/uL (1.4-4.0); Lymphocytes % 38.5 % (21.3-54.2); Mean Corpuscular HGB Conc 32.3 GM/DL (32-36); Mean Corpuscular Hemoglobin 31 PG (27-34); Mean Corpuscular Volume 96.9 FL (87-102); Mean Platelet Volume 10.5 FL (9.6-12.0); Monocytes # 0.3 10*3/uL (0.11-0.8); Monocytes % 10.7 % (1.7-12.7); Neutrophils % 42.6 % (38.7-73.9); Platelet Count 99 T/CUMM (130-400); Red Blood Count 2.56 MC/CUMM (3.8-5.5); Red Cell Distribution Width 14.6 % (9.3-17.3); White Blood Count 2.4 T/CUMM (4-12)
[2018-07-23 07:33] LABS: Albumin 2.9 G/DL (3.4-5.0); Bilirubin,Total 0.8 MG/DL (0.2-1.0); Calcium 7.8 MG/DL (8.5-10.1); Potassium 4.7 MMOL/L (3.5-5.1); Total Protein 6.5 G/DL (6.4-8.3)
[2018-07-23 09:00] LABS: Hypochromasia 1+; Platelet Estimate Decreased
[2018-07-24 05:43] LABS: Basophils % 0.4 % (0.0-0.8); Eosinophils # 0.2 10*3/uL (0.0-0.87); Eosinophils % 6.8 % (0.00-10.9); Hematocrit 23.1 VOL% (35.7-47.0); Hemoglobin 7.3 GM/DL (12.0-16.0); Lymphocytes # 1.1 10*3/uL (1.4-4.0); Lymphocytes % 40.2 % (21.3-54.2); Mean Corpuscular HGB Conc 31.6 GM/DL (32-36); Mean Corpuscular Hemoglobin 31 PG (27-34); Mean Corpuscular Volume 97.5 FL (87-102); Mean Platelet Volume 10.6 FL (9.6-12.0); Monocytes # 0.3 10*3/uL (0.11-0.8); Monocytes % 10.2 % (1.7-12.7); Neutrophils # 1.1 10*3/uL (1.4-7.4); Neutrophils % 42.4 % (38.7-73.9); Platelet Count 104 T/CUMM (130-400); Red Blood Count 2.37 MC/CUMM (3.8-5.5); Red Cell Distribution Width 14.6 % (9.3-17.3); White Blood Count 2.6 T/CUMM (4-12)
[2018-07-24 06:24] LABS: Platelet Estimate Decreased
[2018-07-24 06:40] LABS: Helmet Cells Few; Polychromasia Few
[2018-07-24] MEDS ORDERED: SODIUM CHLORIDE 0.9% 1,000 ML IV PRN ×2 (08:27→08:41)
[2018-07-24 09:28] LABS: Hemoglobin 8.6 GM/DL (12.0-16.0)
[2018-07-24] MEDS: IRBESARTAN 150 MG TABLET PO SCH (15:15)
[2018-07-24] MEDS: amLODIPine 10 MG TABLET PO SCH (15:15)
[2018-07-24] MEDS: CALCIUM CARBONATE CHEW 500 MG TABLET PO SCH (17:21)
[2018-07-24 19:22] LABS: Hematocrit 28.8 VOL% (35.7-47.0); Hemoglobin 9.3 GM/DL (12.0-16.0)
[2018-07-24] MEDS ORDERED: MAGNESIUM CITRATE 300 ML BOTTLE PO ONE (20:00)
[2018-07-24] MEDS: hydrALAZINE 25 MG TABLET PO SCH (20:22)
[2018-07-24] MEDS: hydrALAZINE 20 MG/1 ML VIAL IV PRN (23:52)
[2018-07-25] MEDS: hydrALAZINE 20 MG/1 ML VIAL IV PRN (02:58)
[2018-07-25 05:23] LABS: Basophils % 0.4 % (0.0-0.8); Eosinophils # 0.1 10*3/uL (0.0-0.87); Eosinophils % 5.2 % (0.00-10.9); Hematocrit 28.6 VOL% (35.7-47.0); Hemoglobin 9.5 GM/DL (12.0-16.0); Immature Granulocytes % 0.4 %; Immature Granulocytes Absolute 0.01 #; Lymphocytes # 0.9 10*3/uL (1.4-4.0); Lymphocytes % 33.6 % (21.3-54.2); Mean Corpuscular HGB Conc 33.2 GM/DL (32-36); Mean Corpuscular Hemoglobin 31 PG (27-34); Mean Corpuscular Volume 92.6 FL (87-102); Mean Platelet Volume 10.4 FL (9.6-12.0); Monocytes # 0.2 10*3/uL (0.11-0.8); Neutrophils # 1.4 10*3/uL (1.4-7.4); Neutrophils % 51.4 % (38.7-73.9); Platelet Count 113 T/CUMM (130-400); Red Blood Count 3.09 MC/CUMM (3.8-5.5); Red Cell Distribution Width 15.3 % (9.3-17.3); White Blood Count 2.7 T/CUMM (4-12)
[2018-07-25] MEDS: ONDANSETRON 4 MG/2 ML VIAL IV PRN ×2 (05:39→23:53)
[2018-07-25 05:43] LABS: Hypochromasia 1+; Microcytosis 1+
[2018-07-25 05:44] LABS: Platelet Estimate Adequate
[2018-07-25] MEDS: amLODIPine 10 MG TABLET PO SCH (08:04)
[2018-07-25] MEDS: CALCIUM CARBONATE CHEW 500 MG TABLET PO SCH ×3 (08:04→16:23)
[2018-07-25] MEDS: hydrALAZINE 25 MG TABLET PO SCH ×3 (08:04→20:40)
[2018-07-25] MEDS: IRBESARTAN 150 MG TABLET PO SCH (08:04)
[2018-07-26] MEDS: CALCIUM CARBONATE CHEW 500 MG TABLET PO SCH (08:10)
[2018-07-26] MEDS ORDERED: IRBESARTAN 150 MG TABLET PO SCH (09:00)
[2018-07-26 15:34] VITALS: BP 179/69
== END 2018-07-26 16:17 | disposition home or self-care (01) | DRG 377 ==
LOC: SUATTDRO 20:11 → N.5E 20:11
PROVIDERS: ADMIT Internal Medicine; ATTEND Internal Medicine

== ENCOUNTER 2019-04-06 22:30 | Inpatient (IN) ==
[2019-04-07] MEDS ORDERED: PIPERACILLIN/TAZOBACTAM 2.25 MG in SODIUM CHLORIDE 0.9% 100 ML IV SCH (01:00)
[2019-04-07 01:43] LABS: Basophils % 0.4 % (0.0-0.8); Eosinophils % 1.6 % (0.00-10.9); Hematocrit 33.7 VOL% (35.7-47.0); Hemoglobin 10.7 GM/DL (12.0-16.0); Lymphocytes # 0.5 10*3/uL (1.4-4.0); Lymphocytes % 21.7 % (21.3-54.2); Mean Corpuscular HGB Conc 31.8 GM/DL (32-36); Mean Corpuscular Volume 95.7 FL (87-102); Mean Platelet Volume 10.9 FL (9.6-12.0); Monocytes % 6.4 % (1.7-12.7); Neutrophils % 69.9 % (38.7-73.9); Platelet Count 62 T/CUMM (130-400); Red Blood Count 3.52 MC/CUMM (3.8-5.5); Red Cell Distribution Width 14.6 % (9.3-17.3); White Blood Count 2.5 T/CUMM (4-12)
[2019-04-07 02:04] LABS: Albumin 3.4 G/DL (3.4-5.0); Bilirubin,Total 0.7 MG/DL (0.2-1.0); Calcium 8.3 MG/DL (8.5-10.1); Osmolality,Calculated 279.8 MOS/KG (273-304); Total Protein 8.2 G/DL (6.4-8.3)
[2019-04-07] MEDS ORDERED: ACETAMINOPHEN 325 MG TABLET PO PRN (02:25)
[2019-04-07] MEDS ORDERED: MORPHINE 4 MG/1 ML VIAL IV PRN (02:25)
[2019-04-07] MEDS ORDERED: DEXTROSE 50% 25 GM/50 ML VIAL IV PRN (02:28)
[2019-04-07] MEDS ORDERED: GLUCAGON 1 MG VIAL IM PRN ×2 (02:28→09:15)
[2019-04-07] MEDS ORDERED: MEROPENEM 1,000 MG in SODIUM CHLORIDE 0.9% 100 ML IV ONE (02:34)
[2019-04-07] MEDS: ONDANSETRON 4 MG/2 ML VIAL IV PRN ×2 (04:20→09:44)
[2019-04-07] MEDS: INSULIN LISPRO 100 UNIT/ML SUBCUT SCH ×3 (05:18→17:56)
[2019-04-07] MEDS ORDERED: VANCOMYCIN INJ 500 MG in SODIUM CHLORIDE 0.9% 100 ML IV ONE (09:00)
[2019-04-07] MEDS ORDERED: DEXTROSE 10% 25 GM/250 ML BAG IV PRN (09:15)
[2019-04-07] MEDS: METOPROLOL TARTRATE 25 MG TABLET PO SCH ×2 (13:34→21:07)
[2019-04-07] MEDS ORDERED: VANCOMYCIN INJ 1,500 MG in SODIUM CHLORIDE 0.9% 500 ML IV PRN (14:00)
[2019-04-08] MEDS: INSULIN LISPRO 100 UNIT/ML SUBCUT SCH ×5 (00:02→19:59)
[2019-04-08] MEDS: MEROPENEM 500 MG in SODIUM CHLORIDE 0.9% 100 ML IV SCH (06:07)
[2019-04-08] MEDS: METOPROLOL TARTRATE 25 MG TABLET PO SCH ×2 (09:10→20:26)
[2019-04-08] MEDS: HEPARIN 5,000 UNIT/1 ML VIAL SUBCUT SCH ×3 (09:10→23:55)
[2019-04-08] MEDS ORDERED: LIDOCAINE 1% 20 ML VIAL MISC INJ ONE (11:49)
[2019-04-09 05:05] LABS: Basophils % 0.8 % (0.0-0.8); Eosinophils # 0.2 10*3/uL (0.0-0.87); Eosinophils % 8.5 % (0.00-10.9); Hematocrit 31.6 VOL% (35.7-47.0); Hemoglobin 10.1 GM/DL (12.0-16.0); Lymphocytes # 0.8 10*3/uL (1.4-4.0); Lymphocytes % 30.1 % (21.3-54.2); Mean Corpuscular Volume 95.2 FL (87-102); Mean Platelet Volume 11.4 FL (9.6-12.0); Neutrophils % 48.6 % (38.7-73.9); Platelet Count 78 T/CUMM (130-400); Red Blood Count 3.32 MC/CUMM (3.8-5.5); Red Cell Distribution Width 14.3 % (9.3-17.3); White Blood Count 2.6 T/CUMM (4-12)
[2019-04-09 05:18] LABS: Calcium 8.2 MG/DL (8.5-10.1); Osmolality,Calculated 293.5 MOS/KG (273-304)
[2019-04-09 05:31] LABS: Anisocytosis Slight; Platelet Estimate Decreased
[2019-04-09] MEDS: MEROPENEM 500 MG in SODIUM CHLORIDE 0.9% 100 ML IV SCH (05:42)
[2019-04-09] MEDS: INSULIN LISPRO 100 UNIT/ML SUBCUT SCH ×3 (09:07→16:42)
[2019-04-09] MEDS: HEPARIN 5,000 UNIT/1 ML VIAL SUBCUT SCH ×2 (09:08→16:42)
[2019-04-09] MEDS: METOPROLOL TARTRATE 25 MG TABLET PO SCH (09:09)
[2019-04-09] MEDS ORDERED: VANCOMYCIN INJ 750 MG in SODIUM CHLORIDE 0.9% 250 ML IV ONE (13:00)
[2019-04-09 16:24] VITALS: BP 175/82
[2019-04-10 13:26] LABS: HSV Ab Screen IgM by EIA Negative (Negative)
== END 2019-04-09 16:40 | disposition home or self-care (01) | DRG 746 ==
LOC: N.5E 22:57 → SUATTDRO 04-07 00:17 → UNDODISIN 04-07 15:49
PROVIDERS: ADMIT Internal Medicine; ATTEND Internal Medicine

== ENCOUNTER 2019-07-10 21:28 | Inpatient (IN) ==
[2019-07-10] MEDS ORDERED: ZALEPLON 5 MG CAPSULE PO PRN (23:13)
[2019-07-10] MEDS ORDERED: ALBUTEROL 2.5 MG/3 ML NEB RESP TX PRN (23:13)
[2019-07-10] MEDS ORDERED: GLUCAGON 1 MG VIAL IM PRN (23:13)
[2019-07-10] MEDS ORDERED: ACETAMINOPHEN 325 MG TABLET PO PRN (23:13)
[2019-07-10] MEDS ORDERED: DEXTROSE 50% 25 GM/50 ML VIAL IV PRN ×2 (23:13)
[2019-07-10] MEDS ORDERED: NITROGLYCERIN DRIP 50 MG/250 ML BOTTLE IV PRN (23:20)
[2019-07-11] MEDS: INSULIN REGULAR 100 UNIT/ML SUBCUT SCH ×5 (00:08→20:41)
[2019-07-11] MEDS: METOPROLOL TARTRATE 25 MG TABLET PO SCH ×3 (00:08→20:48)
[2019-07-11] MEDS: ENOXAPARIN 30 MG/0.3 ML SYRINGE SUBCUT SCH ×2 (00:08→22:37)
[2019-07-11] MEDS: ATORVASTATIN 40 MG TABLET PO SCH ×2 (00:08→20:41)
[2019-07-11] MEDS: ONDANSETRON 4 MG/2 ML VIAL IV PRN ×2 (06:10→11:41)
[2019-07-11 06:58] LABS: Eosinophils # 0.2 10*3/uL (0.0-0.87); Eosinophils % 7.8 % (0.00-10.9); Hematocrit 30.3 VOL% (35.7-47.0); Hemoglobin 9.7 GM/DL (12.0-16.0); Lymphocytes # 0.7 10*3/uL (1.4-4.0); Mean Corpuscular Volume 98.4 FL (87-102); Mean Platelet Volume 10.1 FL (9.6-12.0); Monocytes % 9.2 % (1.7-12.7); Red Blood Count 3.08 MC/CUMM (3.8-5.5); Red Cell Distribution Width 15.5 % (9.3-17.3); White Blood Count 2.1 T/CUMM (4-12)
[2019-07-11 07:01] LABS: Platelet Count 83 T/CUMM (130-400)
[2019-07-11 07:18] LABS: Albumin 3.1 G/DL (3.4-5.0); Calcium 8.1 MG/DL (8.5-10.1); Osmolality,Calculated 297.1 MOS/KG (273-304); Total Protein 7.3 G/DL (6.4-8.3)
[2019-07-11 07:24] LABS: Hypochromasia 1+; Ovalocytes Slight; Platelet Estimate Decreased
[2019-07-11] MEDS: PANTOPRAZOLE 40 MG TABLET PO SCH (09:20)
[2019-07-11] MEDS: ASPIRIN EC 81 MG TABLET PO SCH (09:21)
[2019-07-11] MEDS: CALCIUM ACETATE 667 MG CAPSULE PO SCH ×3 (09:21→18:55)
[2019-07-11] MEDS: amLODIPine 10 MG TABLET PO SCH (10:36)
[2019-07-11] MEDS: NITROGLYCERIN 2% OINT 1 INCH/GM PACK TOP SCH ×3 (11:35→23:44)
[2019-07-12] MEDS ORDERED: DEXTROSE 10% 250 ML IV ONE (00:44)
[2019-07-12] MEDS: NITROGLYCERIN 2% OINT 1 INCH/GM PACK TOP SCH ×2 (05:09→11:04)
[2019-07-12 07:20] LABS: Basophils % 0.8 % (0.0-0.8); Eosinophils # 0.2 10*3/uL (0.0-0.87); Eosinophils % 7.2 % (0.00-10.9); Hematocrit 29.9 VOL% (35.7-47.0); Hemoglobin 9.9 GM/DL (12.0-16.0); Immature Granulocytes % 0.4 %; Immature Granulocytes Absolute 0.01 #; Lymphocytes # 0.8 10*3/uL (1.4-4.0); Lymphocytes % 29.1 % (21.3-54.2); Mean Corpuscular HGB Conc 33.1 GM/DL (32-36); Mean Corpuscular Volume 97.4 FL (87-102); Mean Platelet Volume 10.2 FL (9.6-12.0); Monocytes % 12.1 % (1.7-12.7); Neutrophils % 50.4 % (38.7-73.9); Red Blood Count 3.07 MC/CUMM (3.8-5.5); Red Cell Distribution Width 15.1 % (9.3-17.3); White Blood Count 2.7 T/CUMM (4-12)
[2019-07-12 07:21] LABS: Platelet Count 86 T/CUMM (130-400)
[2019-07-12 07:39] LABS: Hypochromasia Slight
[2019-07-12 07:40] LABS: Microcytosis 1+; Ovalocytes Slight; Platelet Estimate Decreased
[2019-07-12 07:44] LABS: Calcium 8.7 MG/DL (8.5-10.1); Osmolality,Calculated 290.1 MOS/KG (273-304)
[2019-07-12] MEDS: INSULIN REGULAR 100 UNIT/ML SUBCUT SCH ×2 (07:51→11:31)
[2019-07-12] MEDS: PANTOPRAZOLE 40 MG TABLET PO SCH (09:20)
[2019-07-12] MEDS: ASPIRIN EC 81 MG TABLET PO SCH (09:20)
[2019-07-12] MEDS: CALCIUM ACETATE 667 MG CAPSULE PO SCH ×2 (09:20→14:32)
[2019-07-12] MEDS: amLODIPine 10 MG TABLET PO SCH (09:20)
[2019-07-12] MEDS: METOPROLOL TARTRATE 25 MG TABLET PO SCH (09:21)
[2019-07-12 14:31] VITALS: BP 150/60
== END 2019-07-12 14:15 | disposition home or self-care (01) | DRG 304 ==
LOC: SUATTDRO 22:53 → N.CC 22:53 → N.5E 07-11 14:49
PROVIDERS: ADMIT Internal Medicine; ATTEND Internal Medicine